=== PATIENT | male | born 1980 | race Caucasian/White ===

== ENCOUNTER 2016-09-18 01:07 | Emergency (ER) | payer MEDICAID, OTHER ==
[~2016-09-18] VITALS: Ht 185.4 cm; Wt 111.0 kg
[2016-09-18 01:14] VITALS: Ht 185.4 cm; Wt 111.0 kg
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
[2016-09-18] MEDS ORDERED: CEFAZOLIN 1 GM INJ IM ONE (03:00)
[2016-09-18] MEDS ORDERED: DIPHTH/TET/ACEL PERTUSS (ADULT) 0.5 ML VIAL IM* ONE (03:00)
[2016-09-18] MEDS ORDERED: LIDOCAINE 1% (MDV) 20 ML INJ SC ONE (03:00)
--- NOTE | 2016-09-18 03:29 | RADRPT ---
AMENDMENT: 09/18/2016 3:28:09 AM Andrei Begum MD There is a voice recognition error within the second impression were right was substituted for left. The corrected impression is as follows: IMPRESSION: 1. No acute fracture or dislocation. 2. Old fracture deformity LEFT fifth metacarpal bone. PROCEDURE: LEFT HAND - 3 VIEWS CLINICAL INDICATION: 36-year-old male with left hand pain following laceration. TECHNIQUE: AP, lateral and oblique views of the left hand were obtained. The images reviewed on a PACS workstation. COMPARISON: None. FINDINGS: There is a deformity within the right fifth metacarpal bone from prior fracture. The bones of the h and appear intact, with no evidence of acute fracture, dislocation, or subluxation. The joint spaces are preserved. Bone mineralization is within normal limits. No radiopaque foreign body is seen. IMPRESSION: 1. No acute fracture or dislocation. 2. Old fracture deformity right fifth metacarpal bone. .Andrei Begum MD, MD Date Time Electronically viewed and signed by .Andrei Begum MD, on 09/18/2016 03:30 .M/
[2016-09-18] MEDS ORDERED: CEPH-443 PO (04:09)
[2016-09-18] MEDS ORDERED: IBUP-1542 PO (04:09)
[2016-09-18] MEDS ORDERED: HYDR-906 PO (04:09)
[2016-09-18 04:27] VITALS: BP 161/85; PULSE 82; RESP 16; TEMP 97.8
== END 2016-09-18 04:30 | disposition home or self-care (01) ==
LOC: FTE 01:07
DX: S61.411A Laceration without foreign body of right hand, initial encounter (principal); S60.221A Contusion of right hand, initial encounter; W23.1XXA Caught, crushed, jammed, or pinched between stationary objects, initial encounter; Y92.9 Unspecified place or not applicable; Z23 Encounter for immunization
CPT/HCPCS: 12002; 73130; 90471; 90715; 96372; J0690; Z7502; Z7610

== ENCOUNTER 2016-09-30 21:08 | Emergency (ER) | payer MEDICAID ==
[~2016-09-30] VITALS: Ht 182.9 cm; Wt 109.5 kg
[~2016-09-30 21:08] MED LIST: CEPH-443 PO; HYDR-906 PO; IBUP-1542 PO
[2016-09-30 21:20] VITALS: Ht 182.9 cm; Wt 109.5 kg
[2016-09-30] MEDS ORDERED: IBUP-1542 PO (22:59)
[2016-09-30] MEDS ORDERED: CLIN-73 PO (22:59)
[2016-09-30] MEDS ORDERED: HYDR-906 PO (22:59)
[2016-09-30] MEDS ORDERED: CLINDAMYCIN 300 MG INJ IM ONE (23:00)
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
== END 2016-09-30 23:35 | disposition home or self-care (01) ==
LOC: FTE 21:08
DX: S61.412A Laceration without foreign body of left hand, initial encounter (principal); X58.XXXA Exposure to other specified factors, initial encounter; Y92.9 Unspecified place or not applicable
CPT/HCPCS: 96372; Z7502; Z7610

== ENCOUNTER 2016-10-03 02:28 | Emergency (ER) | payer MEDICAID ==
[~2016-10-03] VITALS: Ht 177.8 cm; Wt 111.5 kg
[~2016-10-03 02:28] MED LIST changes: +CLIN-73 PO
[2016-10-03 02:32] VITALS: Ht 177.8 cm; Wt 111.5 kg
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
[2016-10-03] MEDS ORDERED: PIPER-TAZO 3.375 GM IV (PMX) 100 ML IVPB ONE (04:00)
[2016-10-03] MEDS ORDERED: VANCOMYCIN 1 GM (PMX) 250 ML IVPB SCH (04:00)
[2016-10-03 04:19] LABS: ADD SCAN DIFF NO
[2016-10-03 04:37] LABS: BASOPHIL # 0.1 10^3/ul (0.0-0.1); BASOPHILS % 0.4 % (0.0-2.0); EOSINOPHILS # 0.3 10^3/ul (0.0-0.5); EOSINOPHILS % 2.3 % (0.0-7.0); HEMATOCRIT 45.2 % (42.0-52.0); HEMOGLOBIN 14.7 g/dl (14.0-18.0); LYMPHOCYTES # 3.4 10^3/ul (0.8-2.9); MEAN CORPUSCULAR HEMOGLOBIN 29.2 pg (29.0-33.0); MEAN CORPUSCULAR HGB CONC 32.5 g/dl (32.0-37.0); MEAN CORPUSCULAR VOLUME 89.9 fl (82.0-101.0); MEAN PLATELET VOLUME 9.7 fl (7.4-10.4); MONOCYTES % 8.7 % (0.0-11.0); NEUTROPHIL # 6.8 10^3/ul (1.6-7.5); NEUTROPHILS % 58.6 % (39.0-77.0); PLATELET COUNT 422 10^3/UL (140-415); RED BLOOD COUNT 5.03 10^6/ul (4.70-6.10); RED CELL DISTRIBUTION WIDTH 12.2 % (11.5-14.5); WHITE BLOOD COUNT 11.6 10^3/ul (4.8-10.8)
[2016-10-03 04:51] LABS: ALBUMIN 4.7 g/dl (3.3-4.9); ALBUMIN/GLOBULIN RATIO 1.46; CALCIUM 9.3 mg/dl (8.4-10.2); CREATININE 0.95 mg/dl (0.61-1.24); POTASSIUM 4.4 mmol/L (3.5-5.1); TOTAL PROTEIN 7.9 g/dl (6.1-8.1)
--- NOTE | 2016-10-03 04:52 | RADRPT ---
PROCEDURE: Left hand x-ray CLINICAL INDICATION: Injury TECHNIQUE: AP, lateral and oblique views of the left hand were obtained. COMPARISON: 09/18/2016 FINDINGS: There is an approximate 6 x 5 mm lucency at the radial aspect of the head of the third metacarpal wh ich could be secondary to impaction fracture with history of injury. There is appearance of mild irr egular flattening of the ulnar aspect of the head of the second metacarpal which could be secondary to impaction injury. No dislocation is seen. Again seen is an old fracture of the mid fifth metacar pal. There may be mild dorsal soft tissue swelling. IMPRESSION: There is an approximate 6 x 5 mm lucency at the radial aspect of the head of the third metacarpal wh ich could be secondary to impaction fracture with history of injury. There is appearance of mild ir regular flattening of the ulnar aspect of the head of the second metacarpal which could be secondary to impaction injury. Please see above. RPTAT: HJES .Ronald Hernandez MD, MD Date Time Electronically viewed and signed by .Ronald Hernandez MD, on 10/03/2016 04:52 .S/
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
[2016-10-03 11:00] VITALS: BP 119/62; PULSE 67; RESP 18
== END 2016-10-03 11:03 | disposition home or self-care (01) ==
LOC: WCC 02:28 → E/R 11:03
DX: Z48.01 Encounter for change or removal of surgical wound dressing (principal); L02.512 Cutaneous abscess of left hand
CPT/HCPCS: 73130; 80053; 85025; 87040; 87070; 96374; 96375; J2543; J3370; Z7502

== ENCOUNTER 2016-10-08 20:31 | Emergency (ER) | payer MEDICAID ==
[~2016-10-08] VITALS: Ht 185.4 cm; Wt 109.5 kg
[2016-10-08 20:42] VITALS: Ht 185.4 cm; Wt 109.5 kg
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
[2016-10-08] MEDS ORDERED: SULF1TAB31 PO (22:05)
[2016-10-08] MEDS ORDERED: HC1C30 TOP (22:05)
[2016-10-08] MEDS ORDERED: CEPH-443 PO (22:05)
[2016-10-08] MEDS ORDERED: HYDROCODONE/APAP (10/325) TAB PO ONE (22:30)
== END 2016-10-08 22:42 | disposition left against medical advice (07) ==
LOC: FTE 20:31
DX: S80.862A Insect bite (nonvenomous), left lower leg, initial encounter (principal); S80.861A Insect bite (nonvenomous), right lower leg, initial encounter; M65.9 Synovitis and tenosynovitis, unspecified; W57.XXXA Bitten or stung by nonvenomous insect and other nonvenomous arthropods, initial encounter; Y92.9 Unspecified place or not applicable
CPT/HCPCS: Z7502; Z7610; 99284

== ENCOUNTER 2016-10-10 22:05 | Emergency (ER) | payer MEDICAID ==
[~2016-10-10] VITALS: Wt 109.5 kg
[~2016-10-10 22:05] MED LIST changes: +HC1C30 TOP; +SULF1TAB31 PO
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
[2016-10-10] MEDS ORDERED: ELIM TOP (23:53)
[2016-10-10] MEDS ORDERED: BEN50 PO (23:54)
[2016-10-11 00:17] VITALS: BP 138/70; PULSE 78; RESP 20; TEMP 98
== END 2016-10-11 01:01 | disposition home or self-care (01) ==
LOC: FTE 22:05
DX: B86 Scabies (principal); W57.XXXA Bitten or stung by nonvenomous insect and other nonvenomous arthropods, initial encounter; Y92.9 Unspecified place or not applicable
CPT/HCPCS: 99283

== ENCOUNTER 2016-11-29 12:09 | Emergency (ER) | payer SELFPAY ==
[~2016-11-29] VITALS: Wt 111.0 kg
[~2016-11-29 12:09] MED LIST changes: +BEN50 PO; +ELIM TOP
[2016-11-29] MEDS ORDERED: ONDANSETRON 4 MG INJ IV STA (12:30)
[2016-11-29] MEDS ORDERED: SOD CHLORIDE 0.9% 1,000 ML IV STA (12:30)
[2016-11-29] MEDS ORDERED: HYDROmorphONE 1 MG/ML SYG IV STA (12:30)
[2016-11-29] MEDS ORDERED: FAMOTIDINE 20 MG TAB PO STA (12:30)
[2016-11-29 13:05] LABS: BASOPHILS % 0.2 % (0.0-2.0); EOSINOPHILS % 0.2 % (0.0-7.0); HEMATOCRIT 45.3 % (42.0-52.0); HEMOGLOBIN 15.4 g/dl (14.0-18.0); LYMPHOCYTES # 1.4 10^3/ul (0.8-2.9); LYMPHOCYTES % 10.9 % (15.0-51.0); MEAN CORPUSCULAR HEMOGLOBIN 30.7 pg (29.0-33.0); MEAN CORPUSCULAR VOLUME 90.2 fl (82.0-101.0); MEAN PLATELET VOLUME 9.9 fl (7.4-10.4); MONOCYTE # 0.7 10^3/ul (0.3-0.9); NEUTROPHIL # 10.7 10^3/ul (1.6-7.5); NEUTROPHILS % 82.6 % (39.0-77.0); PLATELET COUNT 255 10^3/UL (140-415); RED BLOOD COUNT 5.02 10^6/ul (4.70-6.10); RED CELL DISTRIBUTION WIDTH 13.2 % (11.5-14.5)
[2016-11-29 13:17] LABS: ADD UMIC NO; UR ASCORBIC ACID NEGATIVE (NEGATIVE); UR BACTERIA FEW /HPF (NONE SEEN); UR BILIRUBIN (Dip) NEGATIVE (NEGATIVE); UR BLOOD (Dip) NEGATIVE (NEGATIVE); UR CLARITY SLIGHTLY CLOUDY (CLEAR); UR COLOR YELLOW (YELLOW); UR GLUCOSE (Dip) NEGATIVE (NEGATIVE); UR KETONES (Dip) NEGATIVE (NEGATIVE); UR LEUKOCYTE ESTERASE (Dip) NEGATIVE Leu/ul (NEGATIVE); UR NITRITE (Dip) NEGATIVE (NEGATIVE); UR RBC 0 /HPF (0-5); UR SPECIFIC GRAVITY (Dip) 1.023 (1.003-1.030); UR TOTAL PROTEIN (Dip) NEGATIVE (NEGATIVE); UR UROBILINOGEN (Dip) NEGATIVE (NEGATIVE)
[2016-11-29 13:26] LABS: ALBUMIN 4.1 g/dl (3.3-4.9); ALBUMIN/GLOBULIN RATIO 1.32; BILIRUBIN,INDIRECT 0.2 mg/dl (0-1.1); BILIRUBIN,TOTAL 0.2 mg/dl (0.2-1.3); CALCIUM 9.1 mg/dl (8.4-10.2); CREATININE 0.75 mg/dl (0.61-1.24); POTASSIUM 3.8 mmol/L (3.5-5.1); TOTAL PROTEIN 7.2 g/dl (6.1-8.1)
--- NOTE | 2016-11-29 14:02 | RADRPT ---
PROCEDURE: CT abdomen and pelvis without contrast. CLINICAL INDICATION: Abdominal pain TECHNIQUE: Continues 2.5 mm axial images were obtained from the domes of the diaphragms to the inf erior pubic rami. No oral or intravenous contrast was administered. The calculated dose length prod uct (DLP) = 1379 0.18 mGy-cm. Exam CTDlvol = 21.61 mGy. One or more of the following dose reducti on techniques were used: Automated exposure control, adjustment of the mA and or KV according to pat ient size, or use of iterative reconstruction technique. One or more of the following dose reductio n techniques were used: Automated exposure control, adjustment of the mA and or KV according to manuel ent size, or use of iterative reconstruction technique. COMPARISON: None. FINDINGS: The lung bases are clear. No pleural pericardial fluid is seen. Liver, gallbladder, pancreas, spleen, adrenals, and kidneys are within normal limits on this noncont rast study. No evidence of renal calculi or obstructive uropathy. Aorta is normal in caliber. No pathologically enlarged mesenteric lymph nodes are seen. The stomach is within normal limits. Ther e is evidence of previous proximal and distal small bowel resections with primary anastomosis. The anastomotic suture lines are intact. There is no evidence of anastomotic breakdown. No small bowel dilatation or obstruction is seen. There is small amount of oral contrast within the distal small bowel loops. No free fluid, free air, abscess is now in the upper abdomen CT pelvis: Images through the pelvis demonstrate no free fluid, free air, abscess. Bladder is norm ally distended and unremarkable. Prostate and seminal vesicles are within normal limits. Evaluatio n of colon demonstrates no diverticulosis, diverticulitis or acute colitis. Normal appendix is iden tified. The terminal ileum is unremarkable. There are no pathologically enlarged iliac chain lymph nodes. No destructive bony lesions are seen. There is moderate degenerative change L5-S1 with small delivery rep ior disk/osteophyte complex. IMPRESSION: 1. Status post multiple small bowel resections with primary anastomoses. There is no evidence of anastomotic breakdown, leak, extravasation, or small bowel dilatation. 2. Otherwise unremarkable unenhanced CT of the abdomen pelvis. 3. No free fluid, free air, abscess. 4. Normal appendix and terminal ileum. 5. No renal calculi or obstructive uropathy RPTAT: .Augustine Davis MD, MD Date Time Electronically viewed and signed by .Augustine Davis MD, MD on 11/29/2016 14:01 .W/
[2016-11-29] MEDS ORDERED: ONDA-43 PO (14:08)
[2016-11-29] MEDS ORDERED: DICY10CA60 PO (14:08)
[2016-11-29] MEDS ORDERED: HC30CR25 TOP (14:08)
[2016-11-29] MEDS ORDERED: LOPE2CAP PO (14:08)
[2016-11-29] MEDS ORDERED: FAMO20TA18 PO (14:09)
[2016-11-29 14:26] VITALS: BP 147/75; PULSE 76; RESP 20; TEMP 98.3
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
== END 2016-11-29 14:35 | disposition home or self-care (01) ==
LOC: FTE 12:09
DX: R11.2 Nausea with vomiting, unspecified (principal); R19.7 Diarrhea, unspecified
CPT/HCPCS: 36415; 74176; 80053; 81001; 83690; 85025; 96374; 96375; 99285; J1170; J2405; J7030; 81003